=== PATIENT | female | born 1995 | race Caucasian/White ===

== ENCOUNTER 2017-03-24 18:06 | Emergency (ER) | payer OTHER ==
[2017-03-24] MEDS ORDERED: NS 0.9% 1000 ML* 1,000 ML IV ONE (19:06)
[2017-03-24] MEDS ORDERED: oxyCODONE/Acetamin 5/325 MG* TAB PO ONE (19:14)
[2017-03-24 19:46] LABS: Hematocrit 42 % (35-47); Hemoglobin 14.7 g/dl (12.0-16.0); Mean Corpuscular HGB Conc 35 g/dl (31-36); Mean Corpuscular Hemoglobin 30 pg (27-31); Mean Corpuscular Volume 87 fL (80-97); Mean Platelet Volume 9 um3 (7.4-10.4); Red Blood Count 4.86 10^6/ul (4.0-5.4); Red Cell Distribution Width 13 % (10.5-15); White Blood Count 18.9 10^3/ul (3.5-10.8)
[2017-03-24 20:00] LABS: ALT 15 U/L (7-52); AST 18 U/L (13-39); Albumin 4.3 g/dL (3.2-5.2); Alkaline Phosphatase 69 U/L (34-104); Anion Gap 13 mmol/L (2-11); BUN/Creatinine Ratio 14.6 (8-20); Blood Urea Nitrogen 14 mg/dL (6-24); CO2 Carbon Dioxide 18 mmol/L (22-32); Calcium 9.6 mg/dL (8.6-10.3); Chloride 101 mmol/L (101-111); EGFR African American 92.6 (>60); Globulin 3.3 g/dL (2-4); Glucose 128 mg/dL (70-100); Potassium 3.2 mmol/L (3.5-5.0); Sodium 132 mmol/L (133-145); Total Protein 7.6 g/dL (6.4-8.9)
--- NOTE | 2017-03-24 20:20 | RAD ---
HISTORY: Fever COMPARISONS: None VIEWS: 4: Frontal dual-energy and lateral views of the chest. FINDINGS: CARDIOMEDIASTINAL SILHOUETTE: The cardiomediastinal silhouette is normal. ALLAN: The allan are normal. PLEURA: The costophrenic angles are sharp. No pleural abnormalities are noted. LUNG PARENCHYMA: The lungs are clear. ABDOMEN: The upper abdomen is clear. There is no subphrenic gas. BONES AND SOFT TISSUES: No bone or soft tissue abnormalities are noted. OTHER: None. IMPRESSION: NO ACTIVE CARDIOPULMONARY DISEASE.
[2017-03-24] MEDS ORDERED: Iohexol 300* (CONTRAST) 10 ML SDV IV ONE (20:21)
[2017-03-24 20:35] LABS: Urine Bacteria Absent (Absent); Urine Bilirubin Negative (Negative); Urine Glucose Negative (Negative); Urine Nitrite Negative (Negative)
[2017-03-24] MEDS: NS 0.9% 1000 ML* 2,000 ML IV ONE ×2 (20:36→22:00)
--- NOTE | 2017-03-24 21:41 | ED ---
Pat Roberts Edward, scribed for John Calluel on 03/24/17 at 1906 . Complex/Multi-Sys Presentation - HPI Summary HPI Summary: 21 y/o female presents to ED c/o sudden onset N/V at 15:00 today while on a hike. The symptoms are not aggravated or alleviated by anything. Associated sx: numbness/tingling down both arms, mid back pain rated 7/10 in severity located in the R flank, dizziness, and fever. Denies ABD pain, CP. PMHx anxiety. - History Of Current Complaint Chief Complaint: EDGeneral Time Seen by Provider: 03/24/17 19:04 Onset/Duration: Sudden Onset, Lasting Hours, Still Present Location: Pain At: - R flank Associated Signs And Symptoms: Positive: Dizziness, SOB, Nausea, Vomiting, Back Pain - R flank pain, Other - Numbness/tingling down arms. Negative: Chest Pain , Abdominal Pain - Allergies/Home Medications Allergies/Adverse Reactions: Allergies Allergy/AdvReac Type Severity Reaction Status Date / Time No Known Allergies Allergy Verified 03/24/17 18:07 PMH/Surg Hx/FS Hx/Imm Hx Previously Healthy: No Sensory History: Denies: Hx Contacts or Glasses Opthamlomology History: Denies: Hx Contacts or Glasses Psychiatric History: Reports: Hx Anxiety, Hx Depression - Surgical History Surgery Procedure, Year, and Place: None - Immunization History Date of Tetanus Vaccine: up to date Infectious Disease History: No Infectious Disease History: Denies: Traveled Outside the [place] in Last 30 Days - Family History Known Family History: Positive: Diabetes, Other - CA, Alcoholism, Depression, Anxiety - Social History Alcohol Use: Occasionally Hx Substance Use: Yes Substance Use Type: Reports: Marijuana Substance Use Comment - Amount & Last Used: occasionally Hx Tobacco Use: No Smoking Status (MU): Never Smoked Tobacco Review of Systems Positive: Fever Eyes: Negative ENT: Negative Cardiovascular: Negative Negative: Chest Pain Positive: Shortness Of Breath Positive: Vomiting, Nausea. Negative: Abdominal Pain Positive: flank pain - R Musculoskeletal: Negative Skin: Negative Neurological: Other - Dizziness Psychological: Normal All Other Systems Reviewed And Are Negative: Yes Physical Exam Triage Information Reviewed: Yes Vital Signs On Initial Exam: Initial Vitals Temp Pulse Resp BP Pulse Ox 100.3 F 103 22 145/115 100 03/24/17 18:07 03/24/17 18:07 03/24/17 18:07 03/24/17 18:07 03/24/17 18:07 Vital Signs Reviewed: Yes Appearance: Positive: Well-Appearing, No Pain Distress Skin: Positive: Warm, Skin Color Reflects Adequate Perfusion, Dry Head/Face: Positive: Normal Head/Face Inspection Eyes: Positive: EOMI, AZRA ENT: Positive: Normal ENT inspection Neck: Positive: Supple, Nontender Respiratory/Lung Sounds: Positive: Clear to Auscultation, Breath Sounds Present Cardiovascular: Positive: RRR, Pulses are Symmetrical in both Upper and Lower Extremities Abdomen Description: Positive: Nontender, Soft Bowel Sounds: Positive: Present Musculoskeletal: Positive: Strength/ROM Intact, Other - Tenderness @ R flank Neurological: Positive: Normal, Sensory/Motor Intact, Alert, Oriented to Person Place, Time Diagnostics - Vital Signs Vital Signs Temp Pulse Resp BP Pulse Ox 03/24/17 18:54 103.6 F 102 18 119/66 100 03/24/17 18:07 100.3 F 103 22 145/115 100 - Laboratory Result Diagrams: 03/24/17 19:30 03/24/17 19:30 Lab Statement: Any lab studies that have been ordered have been reviewed, and results considered in the medical decision making process. - Radiology CXR Xray Interpretation: No Acute Changes - NO ACTIVE CARDIOPULMONARY DISEASE. ED PHYSICIAN AGREEABLE Radiology Interpretation Completed By: Radiologist - EKG 1 EKG Interpretation: 18:51 - SINUS TACHYCARDIA @ 100 BPM Complex Multi-Symp Course/Dx Assessment/Plan: 21 y/o female presents to ED c/o sudden onset N/V at 15:00 today while on a hike. The symptoms are not aggravated or alleviated by anything. Associated sx: numbness/tingling down both arms, mid back pain rated 7 /10 in severity located in the R flank, dizziness, and fever. Denies ABD pain, CP. PMHx anxiety. CXR SHOWS NO ACTIVE CARDIOPULMONARY DISEASE. EKG 18:51 - SINUS TACHYCARDIA @ 100 BPM. Pt will be signed out to Dr. Torres at shift change pending CT results. - Diagnoses Provider Diagnoses: Flank pain Discharge - Discharge Plan Condition: Stable Disposition: OTHER Discharge Disposition Comment: Pt will be signed out to Dr. Torres at shift change pending CT results. The documentation as recorded by the Pat perez Edward accurately reflects the service I personally performed and the decisions made by me, Aaron Call.
[2017-03-24] MEDS ORDERED: Acetaminophen TAB* 325 MG PO ONE (21:49)
--- NOTE | 2017-03-24 21:51 | RAD ---
CLINICAL HISTORY: Pyelonephritis COMPARISON: None TECHNIQUE: Multiple contiguous axial CT scans were obtained of the abdomen and pelvis after the administration of intravenous contrast. Coronal and sagittal multiplanar reformations are submitted for review. Oral contrast was not administered. Delayed images were obtained through the abdomen and pelvis. FINDINGS: LUNG BASES: The lung bases are clear. LIVER: The liver is mildly enlarged measuring 19 cm in long axis. BILE DUCTS: There is no intrahepatic or extrahepatic biliary dilatation. GALLBLADDER: The gallbladder is normal, without pericholecystic inflammatory change. PANCREAS: The pancreas is normal, without mass or ductal dilatation. SPLEEN: Normal in size and appearance. UPPER GI TRACT: Evaluation of the gastrointestinal tract is limited by incomplete gastric distention. The upper GI tract is unremarkable. SMALL BOWEL AND MESENTERY: The small bowel is normal in contour, course, and caliber. There is no obstruction or dilatation. COLON: The colon is normal in contour, course, caliber. There is no pericolonic inflammatory change. There is a tubular, vermiform, hollow viscus that is blind ending, and originates from the cecum, consistent with a normal appendix. There is no periappendiceal inflammatory change. This best seen on axial image 61 through 64. ADRENALS: Normal bilaterally. KIDNEYS: The kidneys are normal in shape, size, contour, and axis. There is no hydronephrosis or nephrolithiasis. There is no perinephric stranding BLADDER: The bladder is smooth in contour. PELVIC ORGANS: The uterus and adnexa are grossly normal for technique. There is small amount of free fluid within the cul-de-sac. AORTA: The aorta is normal. IVC: Unremarkable LYMPH NODES: There is no lymphadenopathy by size criteria. ABDOMINAL WALL: There is no evidence for abdominal wall hernia. BONES AND SOFT TISSUES: Unremarkable OTHER: None IMPRESSION: 1. MILD HEPATOMEGALY. 2. NO PERINEPHRIC STRANDING. 3. SMALL AMOUNT OF FLUID WITHIN THE PELVIC CUL-DE-SAC. THIS MAY BE PHYSIOLOGIC WITHIN A REPRODUCTIVE AGE FEMALE.
[2017-03-25 00:37] LABS: Hematocrit 39 % (35-47); Hemoglobin 13.5 g/dl (12.0-16.0); Mean Corpuscular HGB Conc 35 g/dl (31-36); Mean Corpuscular Hemoglobin 31 pg (27-31); Mean Corpuscular Volume 88 fL (80-97); Mean Platelet Volume 9 um3 (7.4-10.4); Red Blood Count 4.38 10^6/ul (4.0-5.4); Red Cell Distribution Width 13 % (10.5-15); White Blood Count 17.5 10^3/ul (3.5-10.8)
[2017-03-25 01:39] VITALS: BP 113/65
== END 2017-03-25 01:40 ==
LOC: ED 18:06
DX: R10.84 Generalized abdominal pain (principal); R11.2 Nausea with vomiting, unspecified; R06.02 Shortness of breath; R42 Dizziness and giddiness; M54.9 Dorsalgia, unspecified
CPT/HCPCS: 36415; 71020; 74177; 80053; 81003; 81015; 83605; 84702; 85025; 86703; 87040; 87086; 93005; 96360; 99284; A9270-GY; Q9967